=== PATIENT | female | born 1940 | race Caucasian/White ===

== ENCOUNTER → 2019-04-17 | Outpatient (CLI) | payer OTHER ==
[~2019-04-17] VITALS: Ht 165.1 cm; Wt 63.5 kg
[~2019-04-17] MED LIST: FISH OIL 1,0001 EAC9 PO; PRESERVISION A1 EAC2 PO; SOTALOL80 MG PO; SYNTHROID112 MC1 PO
--- NOTE | 2019-04-18 13:58 | P ---
[facility] [place] [address] PROCEDURE REPORT Name: NEIL RIVERA Room #: REG [facility]#: [id number] Admission: 04/17/19 Attend Phys: Alberto Griffin Discharge: Date of : 36 Report #: [id number] THIS REPORT FOR: //name// CC: Alberto Laws MD DATE OF SERVICE: 04/17/2019 PROCEDURE PERFORMED: Upper endoscopy with biopsies. HISTORY OF PRESENT ILLNESS: The patient is an 78-year-old female with midepigastric abdominal pain, history of gastroesophageal reflux disease. The patient is taking Prilosec on a daily basis for the last year. She denies any dysphagia or odynophagia. Plan is for upper endoscopy. The patient had laparoscopic cholecystectomy on 11/21/2017. DESCRIPTION OF PROCEDURE: The risks and benefits of the procedure were explained to the patient, those risks including but not limited to bleeding, perforation and the risk of sedation. She understood these risks and gave informed consent. Sedation was given using propofol per anesthesia. Next, using a standard Olympus upper endoscope, the scope was placed in the patient's mouth and advanced under direct vision through the esophagus, stomach and into the second portion of the duodenum. The larynx was normal in appearance. The esophagus was normal throughout. The GE junction was normal. There was a mild gastritis noted in the gastric body with a few small erosions. No evidence of ulcerations or bleeding. Biopsies were obtained to rule out H. pylori. The pylorus was normal and patent. The duodenal bulb, first and second portion were all normal. Biopsies were obtained to rule out celiac sprue. The scope was then withdrawn and the procedure terminated. The patient tolerated the procedure well. IMPRESSION: 1. Mild gastritis with a few small gastric erosions. 2. Otherwise, normal upper endoscopy. RECOMMENDATIONS: 1. Await biopsy results. 2. Continue daily PPI therapy. We will add Carafate at this time. Thank you for allowing me to participate in her care. <ELECTRONICALLY SIGNED> By: Alberto Ortiz MD 04/18/19 1358 0851 1022 Alberto Ortiz MD /nt
--- NOTE | 2019-04-19 17:06 | PATH ---
[facility] [place] [address] PATHOLOGY RPT PROCEDURE Name: NEIL RIVERA Chong Room #: REG [facility] Nanette.#: [id number] Admission: 04/17/19 Date of : 36 Discharge: Report #: [id number] Path Case #: [id number] [facility] Accession Number: [id number] . 01 Material submitted: . PART A: duodenum - BIOPSY DUODENUM R/O CELIAC SPRUE PART B: stomach - BIOPSY GASTRITIS R/O H PYLORI . 01 Clinical history: . Pre-op diagnosis: Abdominal pain Post-op diagnosis: Abdominal pain, gastritis A. R/O celiac sprue B. R/O H. pylori . 02 Diagnosis: A. Small bowel mucosa, duodenum, endoscopic biopsy: - No diagnostic abnormalities present. - Negative for villous blunting or increase in intraepithelial lymphocytes. . B. Gastric mucosa, gastritis, endoscopic biopsy: - Mild chronic gastritis with features of reactive gastropathy. - Negative for intestinal metaplasia or atrophy. - Negative for Helicobacter pylori (properly controlled immunohistochemical stain performed. (IUV:alice; 04/19/2019) QMS 04/19/2019 1514 Local . 02 Electronically signed: . Missy Morrison MD, Pathologist NPI- [id number] . 01 Gross description: . A. The specimen is received in formalin, labeled "Neil Rivera, biopsy duodenum, R/O celiac sprue". Received are four segments of pale sam soft tissue ranging in size from 0.2 to 0.4 cm in maximum dimensions. The specimen is submitted entirely in cassette A1. . B. The specimen is received in formalin, labeled "Neil Rivera, gastric biopsy, R/O H. pylori". Received are four segments of pale sam soft tissue ranging in size from 0.3 to 0.6 cm in maximum dimensions. The specimen is submitted entirely in cassette B1. (CAA; 04/18/2019) QAC/QA 04/18/2019 0957 Local . 02 Pathologist provided ICD-10: K29.50, K31.9 [place] [address] PATHOLOGY RPT PROCEDURE Name: NEIL RIVERA Room #: REG [facility] Hernadez#: [id number] Admission: 04/17/19 Date of : 36 Discharge: Report #: [id number] Path Case #: [id number] . 02 [facility] . [id number], [id number], [id number] Specimen Comment: A courtesy copy of this report has been sent to [phone] Specimen Comment: [phone] Specimen Comment: Report sent to and Performed at: [address], [place] [id number] MD Yusef Cabrera MD Phone: [phone] Performed at: [address] [id number] MD Missy Morrison MD Phone: [phone]
== END | disposition home or self-care (01) ==
LOC: GI 07:05
DX: R10.13 Epigastric pain (principal); K29.50 Unspecified chronic gastritis without bleeding; K31.9 Disease of stomach and duodenum, unspecified; K21.9 Gastro-esophageal reflux disease without esophagitis; I10 Essential (primary) hypertension; I48.92 Unspecified atrial flutter; E03.9 Hypothyroidism, unspecified; Z98.890 Other specified postprocedural states; Z90.49 Acquired absence of other specified parts of digestive tract; Z79.899 Other long term (current) drug therapy; Z79.01 Long term (current) use of anticoagulants
CPT/HCPCS: 62110; 62900

== ENCOUNTER → 2019-11-15 | Outpatient (CLI) | payer OTHER | LOC: CAT 14:09 | PROVIDERS: ATTEND Internal Medicine | DX: J47.9 Bronchiectasis, uncomplicated (principal); J84.9 Interstitial pulmonary disease, unspecified; J98.4 Other disorders of lung ==

== ENCOUNTER → 2020-09-12 | Outpatient (CLI) | payer OTHER ==
--- NOTE | ~2020-09-12 | PFR/MVV ---
[facility] [place] [address] PULMONARY FUNCTION MVV/REPORT Name: NEIL RIVERA Room #: REG [facility].#: [id number] Admission: 09/12/20 Attend Phys: Hao Mandujano MD Discharge: Date of : 38 Report #: [id number] THIS REPORT FOR: //name// >> SPIROMETRY: (BTPS) Height: 63.5 in cm Weight: 140 lbs kg Exam Date: 09/12/20 PRE-RX POST-RX PRED BEST %PRED BEST %PRED %CHG FVC LITERS . 2.45 . 1.50 . 61 . 1.70 . 69 . 14 FEV1 LITERS . 1.74 . 1.33 . 77 . 1.53 . 88 . 15 FEV1/FVC % . 81 . 89 . 110 . 90 . 111 . 1 EDQ18-26% L/Sec . 1.39 . 1.64 . 118 . 1.83 . 131 . 11 PEF L/SEC . 5.14 . 3.28 . 61 . 2.90 . 56 . -11 FEF50/FIF50 UNITLESS . . 0.66 . . 1.01 . . 52 MVV L/Min . 76 . 68 . 90 f 1/Min . . . >> LUNG VOLUMES: (BTPS) PRE-RX POST-RX PRED AVG %PRED AVG %PRED %CHG VC Liters . 2.45 . 1.78 . 73 . . . TLC Liters . 4.63 . 3.96 . 86 . . . RV Liters . 1.99 . 2.18 . 110 . . . RV/TLC % . 43 . 55 . 128 . . . FRC PL Liters . . . . . . FRC N2 Liters . 2.75 . . . . . ERV Liters . 0.85 . 0.08 . 10 . . . IC Liters . 1.69 . 1.72 . 102 . . . >> DIFFUSION: DLCO ml/Min/mmHg . 16.9 . 7.1 . 42 . . . DL Yang ml/Min/mmHg . . . . . . DLCO/VA ml/Min/mmHg . 3.32 . 3.22 . 97 . 2.97 . 90 . -8 VA Liters . . 2.22 . . 3.15 . . 42 COMMENTS: COMMENTS: >> RESISTANCE: [facility] [address] [place] [address] PULMONARY FUNCTION MVV/REPORT Name: RIVERANEIL Room #: [facility].#: [id number] Admission: 09/12/20 Attend Phys: Hao Mandujano MD Discharge: Date of : 38 Report #: [id number] PRE-RX PRED AVG %PRED Raw Total cmH20/L/Sec . . . Raw Insp cmH20/L/Sec . . . Raw Exp cmH20/L/Sec . . . Raw cmH20/L/Sec . 1.39 . 4.86 . 350 Gaw L/Sec/cmH20 . 0.661 . 0.206 . 31 sRaw cmH20 Sec . . . sGaw l/cmH20 Sec . . . Vtq Liters . . 3.04 . # = OUTSIDE 95% CONFIDENCE INTERVAL CALIBRATION: PRED: 3.00 ACTUAL: EXP 3.01 INSP 3.02 [facility]-OL10-06 [facility]-05 N-1804-4 >> INTERPRETATION/IMPRESSION: DOC #: [id number] Landen Baker M.D. DATE OF SERVICE: 09/12/2020 ATTENDING PHYSICIAN: Dr. Hao Mandujano. SPIROMETRY: FEV1 is 1.33 liters (77%), FVC is 1.5750 liters (61%). FEV1/FVC ratio is 89%. There is a significant response to bronchodilator therapy. FEV1 increased to 1.53 liters (15% change), FVC improved to 1.70 liters (14% change). Total lung capacity is 3.96 liters (86%). IC to ERV ratio, IC is 1.72 liters (102%). ERV is 0.08 liters (10%). Diffusing capacity is 42%. IMPRESSION: Pulmonary function studies are consistent with moderate restrictive airflow defect with a significant response to bronchodilator therapy. IC to ERV ratio does suggest some pseudo-restriction or decreased strength. Diffusing capacity is severely decreased. Landen Baker M.D. [facility] [address] [place] [address] PULMONARY FUNCTION MVV/REPORT Name: NEIL RIVERA Room #: REG B[facility] CharltonMarielaNadiaMariela#: [id number] Admission: 09/12/20 Attend Phys: Hao Mandujano MD Discharge: Date of : 38 Report #: [id number] By: Landen Baker MD /nt
== END ==
LOC: PUL
PROVIDERS: ATTEND Internal Medicine
DX: J84.112 Idiopathic pulmonary fibrosis (principal); R94.2 Abnormal results of pulmonary function studies

== ENCOUNTER → 2020-10-17 | Outpatient (CLI) | payer OTHER | LOC: CAT 12:19 | PROVIDERS: ATTEND Internal Medicine | DX: J84.112 Idiopathic pulmonary fibrosis (principal); J84.9 Interstitial pulmonary disease, unspecified ==

== ENCOUNTER → 2021-03-31 | Outpatient (CLI) | payer OTHER ==
[~2021-03-31] MED LIST changes: +OFEV100 MG PO
== END ==
LOC: LAB 05:42
PROVIDERS: ATTEND Student in an Organized Health Care Education/Training Program
DX: Z01.812 Encounter for preprocedural laboratory examination (principal); Z20.822 Contact with and (suspected) exposure to COVID-19

== ENCOUNTER → 2021-04-02 | Outpatient (CLI) | payer OTHER ==
[~2021-04-02] VITALS: Ht 162.6 cm; Wt 60.3 kg
--- NOTE | 2021-04-02 14:52 | P ---
[facility] [place] [address] PROCEDURE REPORT Name: NEIL RIVERA [facility] [id number] Admission: 04/02/21 Attend Phys: Alberto Griffin Discharge: Date of : 38 Report #: [id number] THIS REPORT FOR: cc: Asher Laws MD [facility] Asher Laws MD [facility] Alberto Ortiz MD ~ cc: Asher Laws MD DATE OF SERVICE: 04/02/2021 PROCEDURE PERFORMED: Colonoscopy. HISTORY OF PRESENT ILLNESS: The patient is an 80-year-old rge-Kwmvuqw-kgblfamx female. I obtained the history through a customs house broker today. She has had recent weight loss of approximately 10 pounds. Upper endoscopy was just performed for weight loss and dysphagia and an esophageal dilation was performed. She was noted to have several gastric erosions and ulcerations, no evidence of bleeding. Last colonoscopy apparently was in 2005. No family history of colon cancer. The patient denies any diarrhea or constipation. She denies any blood in her stools. DESCRIPTION OF PROCEDURE: The risks and benefits of the procedure were explained to the patient, those risks including but not limited to bleeding, perforation and the risk of sedation. She understood these risks and gave informed consent. Sedation was given using propofol per anesthesia. Next, a digital rectal exam was initially performed, which was normal. Next, using a standard Olympus colonoscope, the scope was placed in the patient's anus and advanced under direct vision to the cecum. The overall prep was excellent. The cecum and ileocecal valve are normal in appearance. Terminal ileum was intubated and normal in appearance. Ascending, transverse and descending colon were normal. A few small diverticula were noted in the sigmoid colon. No evidence of inflammation, otherwise normal. The rectal mucosa was normal. On retroflexion, small nonbleeding internal hemorrhoids were noted. The scope was then withdrawn and the procedure terminated. The patient tolerated the procedure well. IMPRESSION: 1. Sigmoid diverticulosis. 2. Small internal hemorrhoids. 3. Otherwise, normal colonoscopy. RECOMMENDATIONS: Plan is to await biopsies on upper endoscopy today and observe post-dilation, also to start daily PPI therapy. [address] [address] PROCEDURE REPORT Name: NEIL RIVERA Room #: REG [facility] Satya#: [id number] Admission: 04/02/21 Attend Phys: Alberto Griffin Discharge: Date of : 38 Report #: [id number] Thank you for allowing me to participate in her care. <ELECTRONICALLY SIGNED> By: Alberto Ortiz MD 04/02/21 1452 0935 1136 Alberto Ortiz MD /nt
--- NOTE | 2021-04-02 14:52 | P ---
[facility] [place] [address] PROCEDURE REPORT Name: NEIL RIVERA Room #: REG [facility]#: [id number] Admission: 04/02/21 Attend Phys: Alberto Griffin Discharge: Date of : 38 Report #: [id number] THIS REPORT FOR: cc: Asher Laws MD [facility] Asher Laws MD [facility] Alberto Ortiz MD ~ cc: Asher Laws MD DATE OF SERVICE: 04/02/2021 PROCEDURE PERFORMED: Upper endoscopy with biopsies and esophageal dilation. HISTORY OF PRESENT ILLNESS: The patient is an 80-year-old female, speaking only. I used an piercing specialist to obtain the history today. She has been having dysphagia, also with weight loss, intermittent nausea and vomiting. Plan is for EGD and colonoscopy today. DESCRIPTION OF PROCEDURE: The risks and benefits of the procedure were explained to the patient, those risks including but not limited to bleeding, perforation and the risk of sedation. She understood these risks and gave informed consent. Sedation was given using propofol per anesthesia. Next, using a standard Olympus upper endoscope, the scope was placed in the patient's mouth and advanced under direct vision through the esophagus, stomach and into the second portion of the duodenum. The larynx was normal in appearance. The esophagus was normal throughout. The GE junction was normal. Overall, the gastric mucosa was normal in the fundus, in the upper body, in the mid to distal body and antrum; however, there were multiple small erosions with small clean white based ulcers approximately 3-4 mm in size. No evidence of bleeding. Biopsies were obtained today to rule out the possibility of H. pylori. The pylorus was normal and patent. The duodenal bulb, first and second portion were all normal. The scope was then brought back up into the patient's stomach and a Savary guidewire was inserted through the scope, leaving the guidewire in place as the scope was then withdrawn. Next, a 54-[place] Savary dilation of the esophagus was then performed without difficulty. The wire and dilator were removed. The scope was reintroduced into the patient's stomach, a small mucosal tear was noted in the upper esophagus. No evidence of bleeding. No further dilations were performed. The scope was then withdrawn and the procedure terminated. The patient tolerated the procedure well. IMPRESSION: 1. Gastritis with several gastric erosions and small ulcerations. No evidence of bleeding in the distal body and antrum. Biopsies were obtained to rule out H. pylori. 2. Otherwise, normal upper endoscopy. RECOMMENDATIONS: [address] [address] PROCEDURE REPORT Name: NEIL RIVERA Room #: [facility] [id number] Admission: 04/02/21 Attend Phys: Alberto Griffin Discharge: Date of : 38 Report #: [id number] 1. Await biopsy results. 2. Observe the patient post-dilation. 3. Recommend daily PPI therapy. 4. We will proceed with colonoscopy next today. Thank you for allowing me to participate in her care. <ELECTRONICALLY SIGNED> By: Alberto Ortiz MD 04/02/21 1452 0910 1003 Alberto Ortiz MD /nt
--- NOTE | 2021-04-04 17:06 | PATH ---
[facility] [place] [address] PATHOLOGY RPT PROCEDURE Name: MIGUELNEIL B Room #: REG [facility].#: [id number] Admission: 04/02/21 Date of : 38 Discharge: Report #: [id number] Path Case #: [id number] [facility] Accession Number: [id number] . 01 Material submitted: . gastrointestinal site - GASTRITIS R/O H. PYLORI . 01 Clinical history: . DYSPHAGIA WEIGHT LOSS . 01 Diagnosis: Gastric biopsy, "gastric biopsy": - Mild chronic reactive gastropathy. - The immunoperoxidase stain for H. pylori is negative. The control worked appropriately. (SHA:heather; 04/04/2021) MBR 04/04/2021 1130 Local . 01 Electronically signed: . Homar Cruz MD, Pathologist NPI- [id number] . 01 Gross description: . The specimen is received in formalin, labeled "Castro, Neil, gastritis". Received are 4 segments of pale sam tissue ranging in size from 0.3-0.6 cm in maximum dimension. The specimen is entirely submitted in cassette A1. ([facility]; 04/02/2021) NRI/NRI 04/02/2021 2149 Local . 01 Pathologist provided ICD-10: K31.9 . 01 CPT . 918324, [id number] Specimen Comment: A courtesy copy of this report has been sent to [phone] Specimen Comment: [phone] Specimen Comment: Report sent to / DR DORSEY Performed at: [address], [place], [place] [id number] MD Homar Cruz MD Phone: [phone]
== END | disposition home or self-care (01) ==
LOC: GI → EDSTATUS 07:45 → GI 08:16
PROVIDERS: ATTEND Specialist
DX: R63.4 Abnormal weight loss (principal); K31.9 Disease of stomach and duodenum, unspecified; R13.10 Dysphagia, unspecified; K57.30 Diverticulosis of large intestine without perforation or abscess without bleeding; K64.8 Other hemorrhoids; I10 Essential (primary) hypertension; I48.92 Unspecified atrial flutter; E03.9 Hypothyroidism, unspecified; Z98.890 Other specified postprocedural states; Z79.899 Other long term (current) drug therapy; Z90.49 Acquired absence of other specified parts of digestive tract; Z79.01 Long term (current) use of anticoagulants
CPT/HCPCS: 62110; 62900

== ENCOUNTER → 2021-04-23 | Outpatient (CLI) | payer OTHER | LOC: RAD 08:57 | PROVIDERS: ATTEND Internal Medicine | DX: J84.10 Pulmonary fibrosis, unspecified (principal); R06.02 Shortness of breath; J18.9 Pneumonia, unspecified organism; R05.9 Cough, unspecified; R91.8 Other nonspecific abnormal finding of lung field ==